=== PATIENT | female | born 1990 | race Two or more races ===

== ENCOUNTER 2021-05-02 11:58 | Emergency (ER) | payer OTHER ==
[2021-05-02 12:11] VITALS: BP 107/72; PULSE 83; TEMP 98.4
[2021-05-02] MEDS ORDERED: ACETAMINOPHEN 500 MG TABLET (FP) PO ONE (12:53)
[2021-05-02] MEDS ORDERED: ACETAMINOPHEN 500 MG TABLET (FP) ONE (12:56)
== END 2021-05-02 13:05 | disposition home or self-care (01) ==
LOC: EDBD → JER 11:58 → JERFT 11:58
DX: O26.891 Other specified pregnancy related conditions, first trimester (principal); M54.41 Lumbago with sciatica, right side; Z3A.01 Less than 8 weeks gestation of pregnancy
CPT/HCPCS: 99283-25